=== PATIENT | male | born 1970 | race Caucasian/White ===

== ENCOUNTER → 2019-09-30 | Outpatient (CLI) | payer OTHER | END | disposition home or self-care (01) | LOC: US 09:20 | DX: N18.9 Chronic kidney disease, unspecified (principal) ==

== ENCOUNTER 2020-08-29 05:38 | Emergency (ER) | payer OTHER ==
[~2020-08-29] VITALS: Ht 187.9 cm; Wt 99.8 kg
[2020-08-29 05:52] VITALS: BP 130/90
[2020-08-29 06:54] LABS: BASO % 0.4 % (0.0-1.0); EOS # 0.3 10*3/uL (0.0-0.4); EOS % 3.5 % (1.0-4.0); LYMPH # 1.4 10*3/uL (1.3-4.4); LYMPH % 18.1 % (27.0-41.0); MEAN CELL VOLUME 91.1 fl (80.0-94.0); MEAN PLATELET VOLUME 9.8 fl (9.6-12.3); MONO # 0.9 10*3/uL (0.1-1.0); NEUT # 5.1 10*3/uL (2.3-7.9); NEUT % 66.2 % (47.0-73.0); PLATELET COUNT AUTOMATED 271 10*3/uL (130-400); RED BLOOD COUNT 4.94 10*6/uL (4.50-5.90); RED CELL DISTRI WIDTH 12.2 % (0-14.5); WHITE BLOOD COUNT 7.7 10*3/uL (4.8-10.8)
[2020-08-29 07:09] LABS: ALBUMIN 3.8 gm/dl (3.1-4.5); ALKALINE PHOSPHATASE 51 U/L (45-117); BUN 12 mg/dl (7-24); CHLORIDE 109 mmol/L (98-107); CREATININE 1.21 mg/dL (0.70-1.30); LIPASE 178 U/L (73-393); POTASSIUM 3.8 mmol/L (3.5-5.1); SGOT/AST 21 IU/L (3-35); SGPT/ALT 45 U/L (12-78); SODIUM 140 mmol/L (136-145); TOTAL PROTEIN 7.7 gm/dL (6.4-8.2)
--- NOTE | 2020-08-29 07:30 | NUR ---
THE PATIENT CAN NOT PROVIDE A URINE SAMPLE YET
[2020-08-29 08:33] LABS: BILIRUBIN Negative (Negative); BLOOD Negative (Negative); CLARITY Clear (Clear); COLOR Yellow (Yellow); GLUCOSE Negative (Negative); KETONE Negative (Negative); LEUKO ESTERASE Negative (Negative); NITRITE Negative (Negative); SPECIFIC GRAVITY >= 1.030 (1.001-1.030)
[2020-08-29 08:49] LABS: RBC 0-2 rbc/hpf (0-2)
[2020-08-30] MEDS ORDERED: VITAMIN D250 MCG PO (13:21)
== END 2020-08-29 09:14 | disposition admitted as inpatient to this hospital (09) ==
LOC: ED 05:38 → EDHOLD 08:14 → ED 08:14 → 5E 08:29 → EDHOLD 08:29 → ED 09:14
PROVIDERS: Emergency Medicine
DX: K56.609 Unspecified intestinal obstruction, unspecified as to partial versus complete obstruction (principal)

== ENCOUNTER 2020-08-29 08:34 | Inpatient (IN) | payer OTHER ==
[~2020-08-29] VITALS: Ht 187.9 cm; Wt 99.8 kg
--- NOTE | 2020-08-29 09:25 | NUR ---
Time: 924 A 50 year old MALE admitted to 5E under services of CASSANDRA EDWARDS DO. Pt. arrived via stretcher from ER. Chief complaint: ABDOMINAL PAIN, SMALL BOWEL OBSTRUCTION. RAYNE WINN
[2020-08-29 09:48] VITALS: BP 123/82
--- NOTE | 2020-08-29 10:29 | NUR ---
DR MEIER CALLED RE: CONSULT.
--- NOTE | 2020-08-29 11:24 | NUR ---
Web Content Developer in to talk to patient in his room. Patient states that he lives at home with his , independent in his ADLS's and still works. There are 15 steps in the home. Physician: [facility]acy: [facility] Home health services: N/A Patient's level of ADLs: Independent Patient has working utilities: Yes DME: N/A Follow-up physician's appointment after d/c: Per Hospitalist Nurse Director Does patient want to access PORTAL?: Declines Discharge plan at this time is for Pt. to return home at Discharge. There are no Home Needs at this time. Pt. is independent and still is employed. His can assist with any needs. Pt. can return home when discharged. MADHU BLACKMON LPN
[2020-08-29 12:00] VITALS: BP 129/84
[2020-08-29 16:00] VITALS: BP 128/76
--- NOTE | 2020-08-29 16:07 | NUR ---
DR MEIER CALLED RE: PT HAVING MULTIPLE EPISODES OF DIARRHEA AND REQUESTING SOMETHING TO DRINK. NOTIFIED HIM THAT KUB RESULTS ARE NOT BACK YET. PT DENIES NAUSEA AND VOMITING. PT STATES SLIGHT ABDOMINAL TENDERNESS. ORDERS RECEIVED FOR CLEAR LIQUID DIET.
[2020-08-30] VITALS: BP 124/75
[2020-08-30 07:00] LABS: BASO % 0.6 % (0.0-1.0); EOS # 0.3 10*3/uL (0.0-0.4); EOS % 4.4 % (1.0-4.0); HEMATOCRIT 40.4 % (42.0-52.0); LYMPH # 1.5 10*3/uL (1.3-4.4); LYMPH % 23.7 % (27.0-41.0); MEAN CELL VOLUME 91.8 fl (80.0-94.0); MEAN CORPUSCULAR HGB 31.1 pg (27.0-31.0); MEAN CORPUSCULAR HGB CONC 33.9 g/dl (33.0-37.0); MEAN PLATELET VOLUME 9.4 fl (9.6-12.3); MONO # 0.7 10*3/uL (0.1-1.0); MONO % 11.1 % (3.0-9.0); NEUT # 3.7 10*3/uL (2.3-7.9); NEUT % 59.7 % (47.0-73.0); PLATELET COUNT AUTOMATED 226 10*3/uL (130-400); RED CELL DISTRI WIDTH 12.3 % (0-14.5); WHITE BLOOD COUNT 6.2 10*3/uL (4.8-10.8)
--- NOTE | 2020-08-30 07:11 | NUR ---
24 HR chart check completed.
[2020-08-30 07:34] LABS: BUN 10 mg/dl (7-24); CHLORIDE 111 mmol/L (98-107); CHOLESTEROL 154 mg/dL (<200); CREATININE 1.07 mg/dL (0.70-1.30); HDL CHOLESTEROL 34 mg/dl (40-60); LDL CHOLESTEROL 96 mg/dL (9-159); POTASSIUM 3.9 mmol/L (3.5-5.1); SODIUM 142 mmol/L (136-145); TRIGLYCERIDES 119 mg/dl (<150); VLDL CHOLESTEROL 24 mg/dL (6-40)
[2020-08-30 08:00] VITALS: BP 133/70
--- NOTE | 2020-08-30 08:30 | NUR ---
Discharge Plan Remains unchanged. Pt. will return home with his , no Home Needs.
[2020-08-30 12:00] VITALS: BP 128/76
[2020-08-30] MEDS ORDERED: VITAMIN D250 MCG PO (13:21)
[2020-08-30 16:00] VITALS: BP 120/71
--- NOTE | 2020-08-30 17:44 | NUR ---
PATIENT REPORTS HE IS STARTING TO FEEL MORE ABDOMINAL DISCOMFORT AFTER EATING DINNER, NOTIFIED DR. EWING, SHE VERSED THAT PATIENT MAY STAY OVERNIGHT IF HE WANTS TO, SPOKE TO PATIENT, HE CHOSE TO STAY OVERNIGHT.
--- NOTE | 2020-08-30 18:14 | NUR ---
PATIENT C/O NEED TO MOVE BOWELS MEDICATED WITH DULCOLAX TAB ORDERED PRN.
[2020-08-30 20:00] VITALS: BP 128/81
[2020-08-31] VITALS (10 sets, daily range): BP systolic 110–165; BP diastolic 59–99
--- NOTE | 2020-08-31 11:24 | NUR ---
Pt. for Surgical Procedure today. Discharge Plan remains unchanged. Pt. will return home at discharge.
[2020-08-31 13:43] LABS: BASO % 0.3 % (0.0-1.0); EOS % 0.3 % (1.0-4.0); HEMATOCRIT 43.5 % (42.0-52.0); LYMPH # 0.8 10*3/uL (1.3-4.4); LYMPH % 8.3 % (27.0-41.0); MEAN CORPUSCULAR HGB 30.1 pg (27.0-31.0); MEAN CORPUSCULAR HGB CONC 33.1 g/dl (33.0-37.0); MEAN PLATELET VOLUME 9.5 fl (9.6-12.3); MONO # 0.2 10*3/uL (0.1-1.0); MONO % 1.7 % (3.0-9.0); NEUT # 8.8 10*3/uL (2.3-7.9); PLATELET COUNT AUTOMATED 268 10*3/uL (130-400); RED BLOOD COUNT 4.78 10*6/uL (4.50-5.90); RED CELL DISTRI WIDTH 12.2 % (0-14.5); WHITE BLOOD COUNT 9.9 10*3/uL (4.8-10.8)
[2020-08-31 14:13] LABS: ALBUMIN 3.8 gm/dl (3.1-4.5); ALKALINE PHOSPHATASE 44 U/L (45-117); BUN 9 mg/dl (7-24); CHLORIDE 108 mmol/L (98-107); POTASSIUM 4.1 mmol/L (3.5-5.1); SGOT/AST 19 IU/L (3-35); SGPT/ALT 43 U/L (12-78); SODIUM 139 mmol/L (136-145); TOTAL PROTEIN 7.2 gm/dL (6.4-8.2)
--- NOTE | 2020-08-31 17:06 | NUR ---
PATIENT C/O ABDOMINAL PAIN MEDICATED WITH TYLENOL ORDERED PRN
--- NOTE | 2020-08-31 19:00 | NUR ---
REPORT RECEIVED. PT ASLEEP
--- NOTE | 2020-08-31 21:00 | NUR ---
IN TO SEE PT. NO COMPLAINTS
--- NOTE | 2020-08-31 23:57 | NUR ---
TYLENOL GIVEN PER ORDER FOR ABD INCISION PAIN RATED "5". SEE MAR.
[2020-09-01] VITALS: BP 133/86
--- NOTE | 2020-09-01 00:50 | NUR ---
TYLENOL APPEARS EFFECTIVE, PT ASLEEP
[2020-09-01 06:34] LABS: BUN 15 mg/dl (7-24); CHLORIDE 108 mmol/L (98-107); CREATININE 1.16 mg/dL (0.70-1.30); POTASSIUM 3.7 mmol/L (3.5-5.1); SODIUM 140 mmol/L (136-145)
[2020-09-01 06:35] LABS: BASO % 0.1 % (0.0-1.0); HEMATOCRIT 41.1 % (42.0-52.0); LYMPH # 1.3 10*3/uL (1.3-4.4); LYMPH % 7.8 % (27.0-41.0); MEAN CELL VOLUME 90.7 fl (80.0-94.0); MEAN CORPUSCULAR HGB 30.9 pg (27.0-31.0); MEAN CORPUSCULAR HGB CONC 34.1 g/dl (33.0-37.0); MEAN PLATELET VOLUME 10.1 fl (9.6-12.3); MONO # 1.4 10*3/uL (0.1-1.0); MONO % 8.1 % (3.0-9.0); NEUT % 83.5 % (47.0-73.0); PLATELET COUNT AUTOMATED 299 10*3/uL (130-400); RED BLOOD COUNT 4.53 10*6/uL (4.50-5.90); RED CELL DISTRI WIDTH 12.1 % (0-14.5); WHITE BLOOD COUNT 16.7 10*3/uL (4.8-10.8)
--- NOTE | 2020-09-01 07:00 | NUR ---
ARRIVED ON SHIFT, REPORT RECEIVED FROM OFFGOING NURSE, ASSUMED CARE OF PATIENT.
--- NOTE | 2020-09-01 07:30 | NUR ---
INTRODUCED SELF TO PATIENT, BED IN LOW POSITION, WHEEL LOCKS ENGAGED, SIDE RAILS UP X 2 FOR TURNING AND REPOSITIONING, CALL LIGHT WITHIN REACH NO NEEDS VOICED AT THIS TIME, WHITE BOARD UPDATED.
[2020-09-01 08:00] VITALS: BP 125/80
--- NOTE | 2020-09-01 09:46 | NUR ---
Shift chart check completed.
[2020-09-01] MEDS ORDERED: NORCO 5-325 TA1 EACH PO (10:14)
[2020-09-01] MEDS ORDERED: ZOFRAN4 MG PO (10:14)
--- NOTE | 2020-09-01 11:00 | NUR ---
MS Discharge instructions reviewed with patient/family. Patient receptive and verbalizes understanding. Follow-up care arranged. Written instructions given to patient/family., IV'S REMOVED, WRITTEN PERSCRIPTIONS GIVEN, NON-MONITORED REFUSED W/C, AMBULATED OUT WITHOUT DIFFICULTY. JOSE WALLER
== END 2020-09-01 13:29 | disposition home or self-care (01) | DRG 337 ==
LOC: 5E 08:34 → EDHOLD 08:34 → 5E 08:35
PROVIDERS: Internal Medicine; Surgery; ADMIT Family Medicine; ATTEND Family Medicine
PROC: 0DN84ZZ Release Small Intestine, Percutaneous Endoscopic Approach (ICD-10-PCS; principal; 2020-08-31)
DX: K56.51 Intestinal adhesions [bands], with partial obstruction (principal); E87.8 Other disorders of electrolyte and fluid balance, not elsewhere classified; F43.10 Post-traumatic stress disorder, unspecified; E78.00 Pure hypercholesterolemia, unspecified; R79.82 Elevated C-reactive protein (CRP); E55.9 Vitamin D deficiency, unspecified; Z82.49 Family history of ischemic heart disease and other diseases of the circulatory system; Z81.1 Family history of alcohol abuse and dependence; Z98.52 Vasectomy status